=== PATIENT | male | born 1965 | race Caucasian/White ===

== ENCOUNTER 2023-08-10 10:07 | Emergency (ER) | payer OTHER | END 2023-08-10 12:44 | disposition home or self-care (01) | LOC: JP.ED 10:07 → EDBD 10:07 → EDSEX 10:07 → JP.ED 12:44 | DX: N20.0 Calculus of kidney (principal); I10 Essential (primary) hypertension; J45.909 Unspecified asthma, uncomplicated; E03.9 Hypothyroidism, unspecified; Z79.899 Other long term (current) drug therapy; Z88.7 Allergy status to serum and vaccine; Z91.018 Allergy to other foods | CPT/HCPCS: 74176; 74176-26; 99283; 99284 ==

== ENCOUNTER 2024-02-02 06:36 | Day surgery (SDC) | payer OTHER ==
[2024-02-02] MEDS ORDERED: Propofol 200 MG/20 ML SDV ONE ×2 (06:53→07:38)
[2024-02-02] MEDS ORDERED: Midazolam 1 MG/ML 2 ML SDV ONE (06:53)
[2024-02-02] MEDS ORDERED: fentaNYL 50 MCG/ML SDV ONE (06:53)
[2024-02-02] MEDS: Lactated Ringers 1,000 ML IV SCH (07:23)
== END 2024-02-02 09:20 | disposition home or self-care (01) ==
LOC: JP.SDS 06:36
PROVIDERS: ATTEND Surgery
DX: Z12.11 Encounter for screening for malignant neoplasm of colon (principal); D12.4 Benign neoplasm of descending colon; K64.9 Unspecified hemorrhoids; I10 Essential (primary) hypertension; Z86.010 Personal history of colon polyps; Z80.0 Family history of malignant neoplasm of digestive organs
CPT/HCPCS: 45385; J2250; J2704; J3010; J7120